=== PATIENT | female | born 1950 | race Caucasian/White ===

== ENCOUNTER 2017-10-13 01:38 | Observation (INO) | payer MEDICARE, OTHER ==
--- NOTE | 2017-10-13 02:10 | ER Document Report ---
ED General - General Chief Complaint: Other Stated Complaint: CHEST PAIN Time Seen by Provider: 10/13/17 01:58 Notes: Patient is a 67-year-old female that comes by EMS for chief complaint of an episode that happened about 1 hour prior to arrival where she felt flushing, she felt a a wave of a strange sensation and tingling down her body, she broke out into a sweat, and she felt like her right arm and her general upper body started twitching. She denies any pressure or pain, she denies shortness of breath or nausea, she states because it was strange she became concerned and she took nitroglycerin and 324 mg of aspirin and called EMS. She states symptoms resolved before EMS arrived. She denies any current symptoms. She reports history of [place] with 2 stents, type 2 diabetes, hypertension, hyperlipidemia, restless legs. She does not smoke. TRAVEL OUTSIDE OF THE [place] IN LAST 30 DAYS: No - Related Data Allergies/Adverse Reactions: No Known Allergies Allergy (Verified 02/25/16 22:31) Past Medical History - General Information source: Patient - Social History Smoking Status: Never Smoker Chew tobacco use (# tins/day): No Frequency of alcohol use: None Drug Abuse: None Lives with: Family Family History: Reviewed & Not Pertinent Patient has suicidal ideation: No Patient has homicidal ideation: No - Past Medical History Cardiac Medical History: Reports: Hx Heart Attack, Hx Hypercholesterolemia, Hx Hypertension - on meds Denies: Hx Coronary Artery Disease Pulmonary Medical History: Denies: Hx Asthma, Hx Bronchitis, Hx COPD, Hx Pneumonia Neurological Medical History: Denies: Hx Cerebrovascular Accident, Hx Seizures Endocrine Medical History: Reports: Hx Diabetes Mellitus Type 2 Renal/ Medical History: Denies: Hx Peritoneal Dialysis GI Medical History: Denies: Hx Hepatitis, Hx Hiatal Hernia, Hx Ulcer Musculoskeltal Medical History: Reports Hx Arthritis Psychiatric Medical History: Reports: Hx Depression Infectious Medical History: Denies: Hx Hepatitis Past Surgical History: Reports: Hx Cardiac Surgery - stent x2, Hx Orthopedic Surgery - left rotator cuff;back, Hx Tubal Ligation. Denies: Hx Mastectomy, Hx Open Heart Surgery, Hx Pacemaker - Immunizations Immunizations up to date: Yes Hx Diphtheria, Pertussis, Tetanus Vaccination: No Review of Systems - Review of Systems Constitutional: See HPI EENT: No symptoms reported Cardiovascular: See HPI Respiratory: No symptoms reported Gastrointestinal: No symptoms reported Genitourinary: No symptoms reported Female Genitourinary: No symptoms reported Musculoskeletal: No symptoms reported Skin: No symptoms reported Hematologic/Lymphatic: No symptoms reported Neurological/Psychological: No symptoms reported Physical Exam - Vital signs Vitals: Resp 19 10/13/17 01:49 - Notes Notes: GENERAL: Alert, interacts well. No acute distress. HEAD: Normocephalic, atraumatic. EYES: Pupils equal, round, and reactive to light. Extraocular movements intact. ENT: Oral mucosa moist, tongue midline. NECK: Full range of motion. Supple. Trachea midline. LUNGS: Clear to auscultation bilaterally, no wheezes, rales, or rhonchi. No respiratory distress. HEART: Regular rate and rhythm. No murmur ABDOMEN: Soft, non-tender. Non-distended. Bowel sounds present in all 4 quadrants. EXTREMITIES: Moves all 4 extremities spontaneously. No edema, normal radial and dorsalis pedis pulses bilaterally. No cyanosis. BACK: no cervical, thoracic, lumbar midline tenderness. No saddle anesthesia, normal distal neurovascular exam. NEUROLOGICAL: Alert and oriented x3. Normal speech. [cranial nerves II through XII grossly intact]. PSYCH: Normal affect, normal mood. SKIN: Warm, dry, normal turgor. No rashes or lesions noted. Course - Re-evaluation Re-evalutation: EKG showing sinus rhythm, flattened T-waves and borderline Q waves inferiorly and anteriorly, however this is not significantly changed from prior. No acute findings. Chest x-ray unremarkable. Shows mild leukocytosis with no concerning shift, chemistry shows mild hypokalemia, mildly elevated BUN, borderline glucose. Magnesium checked unremarkable, potassium supplemented. Urine suggestive of infection, culture placed, given Keflex. Initial troponin is negative. Patient symptoms are slightly atypical, however based on her history troponin was cycled, this does show some slight elevation although is still negative. Patient has been asymptomatic during her stay, remains asymptomatic on reevaluation. Discussed with Dr. Wang, recommendation is for telemetry observation based on upward trend of troponin, patient history, patient HPI. Discussed with Dr. Dunn, patient will be admitted to telemetry observation, patient states satisfaction and agreement with plan. - Vital Signs Vital signs: Temp Pulse Resp BP Pulse Ox 97.8 F 16 129/78 H 97 10/13/17 02:01 10/13/17 04:50 10/13/17 04:50 10/13/17 04:50 - Laboratory Result Diagrams: 10/13/17 00:56 10/13/17 00:56 Laboratory results interpreted by me: 10/13/17 10/13/17 10/13/17 00:56 00:56 04:50 WBC 12.6 H RBC 5.45 H Absolute Lymphocytes 5.0 H Potassium 3.5 L BUN 21 H Glucose 74 L Ur Leukocyte Esterase MODERATE H Discharge - Discharge Clinical Impression: Diaphoresis Chest pain Qualifiers: Chest pain type: unspecified Qualified Code(s): R07.9 - Chest pain, unspecified Condition: Stable Disposition: ADMITTED OBSERVATION Admitting Provider: Hospitalist Unit Admitted: Telemetry
[2017-10-13 02:19] LABS: ABSOLUTE BASOPHILS # (AUTO) 0.1 10^3/uL (0.0-0.2); ABSOLUTE EOSINOPHILS # (AUTO) 0.3 10^3/uL (0.0-0.6); ABSOLUTE MONOCYTES (AUTO) 0.9 10^3/uL (0.1-1.4); ABSOLUTE NEUT (AUTO) 6.3 10^3/uL (1.7-8.2); BASOPHILS % (AUTO) 0.7 % (0-2); EOSINOPHILS % (AUTO) 2.2 % (0-6); HEMATOCRIT 45.7 % (36.0-47.0); HEMOGLOBIN 15.3 g/dL (12.0-15.5); LYMPHOCYTES % (AUTO) 39.5 % (13-45); MEAN CORPUSCULAR HGB CONC 33.4 g/dL (32.0-36.0); MEAN CORPUSCULAR VOLUME 84 fl (80-97); MONOCYTES % (AUTO) 7.5 % (3-13); PLATELET COUNT 291 10^3/uL (150-450); RED BLOOD COUNT 5.45 10^6/uL (3.72-5.28); RED CELL DISTRIBUTION WIDTH 13.8 % (11.5-14.0); SEGMENTED NEUTROPHILS % (AUTO) 50.1 % (42-78); TOTAL CELLS COUNTED % (AUTO) 100 %; WHITE BLOOD COUNT 12.6 10^3/uL (4.0-10.5)
[2017-10-13 02:26] LABS: ALANINE AMINOTRANSFERASE 17 U/L (9-52); ALKALINE PHOSPHATASE 106 U/L (38-126); ANION GAP 14 (5-19); ASPARTATE AMINO TRANSFERASE 15 U/L (14-36); BILIRUBIN,DIRECT 0.2 mg/dL (0.0-0.4); BILIRUBIN,TOTAL 0.2 mg/dL (0.2-1.3); BLOOD UREA NITROGEN 21 mg/dL (7-20); CALCIUM 9.7 mg/dL (8.4-10.2); CARBON DIOXIDE 26 mmol/L (22-30); CHLORIDE 105 mmol/L (98-107); CREATINE KINASE 34 U/L (30-135); GLUCOSE 74 mg/dL (75-110); POTASSIUM 3.5 mmol/L (3.6-5.0); TOTAL PROTEIN 7.3 g/dL (6.3-8.2)
--- NOTE | 2017-10-13 02:40 | RADIOLOGY REPORT (SQ) ---
EXAM DESCRIPTION: XR CHEST 1 VIEW CLINICAL HISTORY: 67 years Female, weakness COMPARISON: 9.24.16. NUMBER OF VIEWS/TECHNIQUE: 1/AP FINDINGS: Adequate lung volume, clear parenchyma, normal cardiac silhouette, and intact bony thorax. IMPRESSION: No acute cardiopulmonary findings.
[2017-10-13 02:44] LABS: CREATINE KINASE MB 0.43 ng/mL (<4.55)
[2017-10-13 02:47] LABS: TROPONIN I < 0.012 ng/mL
[2017-10-13] MEDS ORDERED: POTASSIUM CHLORIDE 10 MEQ TABLET.SA PO ONE (03:43)
[2017-10-13 05:01] LABS: APPEARANCE,URINE CLEAR; BILIRUBIN,URINE NEGATIVE (NEGATIVE); COLOR,URINE YELLOW; GLUCOSE, URINE NEGATIVE (NEGATIVE); KETONES,URINE NEGATIVE (NEGATIVE); LEUKOCYTE ESTERASE,URINE MODERATE (NEGATIVE); NITRITE,URINE NEGATIVE (NEGATIVE); PROTEIN,URINE NEGATIVE (NEGATIVE); UROBILINOGEN,URINE NEGATIVE mg/dL (<2.0)
[2017-10-13] MEDS ORDERED: CEPHALEXIN 500 MG CAPSULE PO ONE (05:47)
[2017-10-13] MEDS ORDERED: NITROGLYCERIN 0.4 MG/TAB 25 TAB/BOTTLE SL PRN (06:47)
[2017-10-13] MEDS ORDERED: GLUCAGON,HUMAN RECOMB 1 MG INJ IM PRN (06:47)
[2017-10-13] MEDS ORDERED: DEXTROSE 50%-WATER 25 GM/50 ML DISP.SYRIN IV PRN ×2 (06:47)
[2017-10-13] MEDS ORDERED: INSULIN LISPRO 100 UNIT/ML 3 ML VIAL SUBCUT PRN (06:47)
[2017-10-13] MEDS ORDERED: DEXTROSE 40% GEL 15 GM TUBE PO PRN ×2 (06:47)
[2017-10-13] MEDS ORDERED: DEXTROSE 5%-1/2 NORMAL SALINE 1,000 ML IV ONE (06:48)
--- NOTE | 2017-10-13 07:45 | EKG REPORT ---
SEVERITY:- ABNORMAL ECG - SINUS RHYTHM INFERIOR INFARCT, OLD CONSIDER ANTERIOR INFARCT BORDERLINE PROLONGED QT INTERVAL : Confirmed by: Jarrell Diamond MD 13-Oct-2017 07:44:40
[2017-10-13] MEDS ORDERED: ATORVASTATIN CALCIUM 40 MG TABLET PO ONE (08:00)
[2017-10-13 08:12] LABS: CREATINE KINASE MB 0.87 ng/mL (<4.55); TROPONIN I 0.031 ng/mL
[2017-10-13] MEDS ORDERED: INSULIN DETEMIR 100 UNIT/ML 3 ML PEN SUBCUT SCH ×2 (10:00→17:30)
[2017-10-13] MEDS: DOCUSATE SODIUM 100 MG CAPSULE PO SCH ×2 (10:55→17:34)
[2017-10-13] MEDS: GABAPENTIN 300 MG CAPSULE PO SCH ×2 (14:38→22:25)
[2017-10-13 14:55] LABS: CREATINE KINASE MB 0.94 ng/mL (<4.55); TROPONIN I 0.013 ng/mL
--- NOTE | 2017-10-13 17:26 | PDOC PROGRESS REPORT ---
Subjective Progress Note for:: 10/13/17 Subjective:: The patient is a 67-year-old female with a past medical history of SC with 2 stents, type 2 diabetes mellitus requiring insulin, hypertension, hyperlipidemia , and restless legs who was admitted on 10/13/17 for atypical chest pain. The patient is seen on morning rounds. She is seen resting in bed comfortably on room air. She is found to be lying completely supine does not appear to have any difficulty with orthopnea; speaking in full sentences. The patient reports that she had atypical chest pain described as chest discomfort with palpitations associated with a tingling sensation over her body with heaviness to her right arm and diaphoresis. Onset was while at rest and resolved following self administration of a sublingual nitro tab. She has had no further symptoms since her arrival. At present, she denies headache, dizziness, chest pain, palpitations, dyspnea, orthopnea, abdominal pain, nausea vomiting and diarrhea. She has no new questions or concerns. Reason For Visit: CP CAD DM HYPOGLYCEMIA Physical Exam Vital Signs: Temp Pulse Resp BP Pulse Ox 98.2 F 69 18 142/74 H 96 10/13/17 16:12 10/13/17 16:12 10/13/17 16:12 10/13/17 16:12 10/13/17 16:12 Intake & Output 10/12/17 10/13/17 10/14/17 06:59 06:59 06:59 Weight 97 kg General appearance: PRESENT: no acute distress, obese, well-developed, well- nourished Head exam: PRESENT: atraumatic, normocephalic Eye exam: PRESENT: conjunctiva pink, EOMI, PERRLA. ABSENT: scleral icterus Ear exam: PRESENT: normal external ear exam Mouth exam: PRESENT: moist, tongue midline Neck exam: ABSENT: carotid bruit, JVD, lymphadenopathy, thyromegaly Respiratory exam: PRESENT: clear to auscultation fredy, symmetrical, unlabored. ABSENT: rales, rhonchi, wheezes Cardiovascular exam: PRESENT: RRR, +S1, +S2. ABSENT: diastolic murmur, rubs, systolic murmur Pulses: PRESENT: normal dorsalis pedis pul Vascular exam: PRESENT: normal capillary refill GI/Abdominal exam: PRESENT: normal bowel sounds, soft. ABSENT: distended, guarding, mass, organolmegaly, rebound, tenderness Rectal exam: PRESENT: deferred Extremities exam: PRESENT: full ROM. ABSENT: calf tenderness, clubbing, pedal edema Neurological exam: PRESENT: alert, awake, oriented to person, oriented to place , oriented to time, oriented to situation, CN II-XII grossly intact. ABSENT: motor sensory deficit Psychiatric exam: PRESENT: appropriate affect, normal mood, unusual affect. ABSENT: homicidal ideation, suicidal ideation Skin exam: PRESENT: dry, intact, warm. ABSENT: cyanosis, rash Results Laboratory Results: 10/13/17 10/13/17 07:36 13:47 CK-MB (CK-2) 0.87 0.94 Troponin I 0.031 0.013 Impressions: Chest X-Ray 10/13/17 02:07 IMPRESSION: No acute cardiopulmonary findings. Assessment & Plan - Diagnosis (1) Atypical chest pain Is this a current diagnosis for this admission?: Yes Plan: Although the patient's discomfort is atypical for chest pain and likely related to her relative hypoglycemia, the patient does have significant risk factors of a previous SC, obesity, hypertension, hyperlipidemia, and diabetes mellitus and so will evaluate further. Ms. Adame Chest x-ray is negative for acute processes. EKG demonstrated normal sinus rhythm with inferior old infarct, and borderline prolonged QT interval. There is no evidence of ST elevation or depression. Initial troponin was negative. The patient is admitted to the medical floor on continuous cardiac telemetry. Serial troponins were trended. We will obtain echocardiogram and nuclear stress testing. We will evaluate A1c and lipid panel for risk stratification with a.m. labs. Sublingual nitroglycerin is available as needed for chest pain. (2) Diabetes mellitus Qualifiers: Diabetes mellitus type: type 2 Diabetes mellitus termite treater insulin use: with fpc use Diabetes mellitus complication status: with unspecified complications Qualified Code(s): E11.8 - Type 2 diabetes mellitus with unspecified complications; Z79.4 - oysterman (current) use of insulin; Z79.4 - oysterman (current) use of insulin; Z79.4 - retirement (current) use of insulin; Z79.4 - retirement (current) use of insulin Is this a current diagnosis for this admission?: Yes Plan: Hemoglobin A1c is 9.0% We will hold the patient's metformin while inpatient. She is placed on a consistent carb diet with Accu-Cheks before meals and at bedtime. Humalog for sliding scale coverage. Her home dose Levemir of 65 units is reduced; will provide Lantus 20 units BID We will ask the certified diabetes educator to meet with patient. (3) Hypertension Is this a current diagnosis for this admission?: Yes Plan: We will continue the patient's home dose lisinopril and metoprolol. (4) Obesity Qualifiers: Body mass index: BMI 36.0-36.9 Is this a current diagnosis for this admission?: Yes Plan: The patient is placed on a consistent carb and cardiac diet. We will ask the registered dietitian and certified diabetes educator to meet with the patient. Dietary discretion is advised. - Time Time Spent with patient: 25-34 minutes Medications reviewed and adjusted accordingly: Yes Anticipated discharge: Home Within: within 24 hours
--- NOTE | 2017-10-13 18:53 | XCELERA REPORT ---
[address] [address] Transthoracic Echocardiogram Report Name: FUAD MASTERS Age: 67 yrs Gender: Female : 1950 Patient Status: Inpatient Patient Location: [place] [address]^A Study Date: 10/13/2017 09:24 AM Height: 64 in Weight: 210 lb BSA: 2.0 m2 Procedure: A complete two-dimensional transthoracic echocardiogram was performed (2D, M-mode, spectral and color flow Doppler). The study was technically adequate with some images being suboptimal in quality. Reason For Study: Chest pain (obs patient) Ordering Physician: SARAN LOPEZC Performed By: Linda Randolph Interpretation Summary The left ventricular ejection fraction is normal. Doppler measurements suggest pseudonormalized left ventricular relaxation, which is associated with grade II/IV or mild to moderate diastolic dysfunction The left ventricle is grossly normal size. There is borderline concentric left ventricular hypertrophy. Wall motion cannot be accurately commented on, but no definite regional wall motion abnormalities noted. The right ventricle is mildly dilated. The right ventricular systolic function is normal. The right atrium is normal in size The left atrial size is normal. There is no mitral valve stenosis. There is a trace amount of mitral regurgitation There is no aortic valve stenosis No aortic regurgitation is present. There is no tricuspid stenosis. No tricuspid regurgitation. The aortic root is not well visualized but is probably normal size. The inferior vena cava appeared normal and decreased > 50% with respiration (RAP 5-10 mmHg) There is no pericardial effusion. MMode/2D Measurements & Calculations RVDd: 3.0 cm LVIDd: 4.4 cm FS: 40.2 % Ao root diam: 3.1 cm IVSd: 1.1 cm LVIDs: 2.6 cm EDV(Teich): 86.7 ml LVPWd: 1.1 cm ESV(Teich): 25.1 ml Ao root area: 7.4 cm2 EF(Teich): 71.1 % LA dimension: 3.6 cm LVOT diam: 2.0 cm LVOT area: 3.2 cm2 Doppler Measurements & Calculations MV E max deneen: MV P1/2t max deneen: Ao V2 max: LV V1 max P.8 cm/sec 64.1 cm/sec 154.2 cm/sec 3.2 mmHg MV A max deneen: MV P1/2t: 74.0 msec Ao max PG: LV V1 max: 79.9 cm/sec MVA(P1/2t): 3.0 cm2 9.5 mmHg 88.8 cm/sec MV E/A: 0.80 MV dec slope: ANN(V,D): 1.8 cm2 253.7 cm/sec2 PA V2 max: 87.9 cm/sec PA max P.1 mmHg Left Ventricle The left ventricle is grossly normal size. There is borderline concentric left ventricular hypertrophy. The left ventricular ejection fraction is normal. Doppler measurements suggest pseudonormalized left ventricular relaxation, which is associated with grade II/IV or mild to moderate diastolic dysfunction. Wall motion cannot be accurately commented on, but no definite regional wall motion abnormalities noted. Right Ventricle The right ventricle is mildly dilated. There is normal right ventricular wall thickness. The right ventricular systolic function is normal. Atria The right atrium is normal in size. The left atrial size is normal. A patent foramen ovale is suspected. Mitral Valve The mitral valve is grossly normal. There is no mitral valve stenosis. There is a trace amount of mitral regurgitation. Aortic Valve The aortic valve is grossly normal. There is no aortic valve stenosis. No aortic regurgitation is present. Tricuspid Valve The tricuspid valve is not well visualized, but is grossly normal. There is no tricuspid stenosis. No tricuspid regurgitation. Pulmonic Valve The pulmonic valve is not well visualized. Great Vessels The aortic root is not well visualized but is probably normal size. The inferior vena cava appeared normal and decreased > 50% with respiration (RAP 5-10 mmHg). Effusions There is no pericardial effusion. : ESTHER LOPEZ > Lorena Rocha
[2017-10-13 19:40] LABS: CREATINE KINASE MB 0.88 ng/mL (<4.55)
[2017-10-13 19:41] LABS: TROPONIN I < 0.012 ng/mL
[2017-10-13] MEDS ORDERED: ATORVASTATIN CALCIUM 40 MG TABLET PO SCH (22:00)
[2017-10-13] MEDS: INSULIN DETEMIR 100 UNIT/ML 3 ML PEN SUBCUT SCH (22:24)
[2017-10-14] MEDS: GABAPENTIN 300 MG CAPSULE PO SCH ×2 (05:40→13:42)
[2017-10-14 06:22] LABS: ABSOLUTE BASOPHILS # (AUTO) 0.1 10^3/uL (0.0-0.2); ABSOLUTE EOSINOPHILS # (AUTO) 0.2 10^3/uL (0.0-0.6); ABSOLUTE LYMPHOCYTES (AUTO) 3.1 10^3/uL (0.5-4.7); ABSOLUTE MONOCYTES (AUTO) 0.5 10^3/uL (0.1-1.4); ABSOLUTE NEUT (AUTO) 4.3 10^3/uL (1.7-8.2); BASOPHILS % (AUTO) 0.9 % (0-2); EOSINOPHILS % (AUTO) 2.6 % (0-6); HEMATOCRIT 41.9 % (36.0-47.0); LYMPHOCYTES % (AUTO) 38.1 % (13-45); MEAN CORPUSCULAR HEMOGLOBIN 28.1 pg (27.0-33.4); MEAN CORPUSCULAR HGB CONC 33.5 g/dL (32.0-36.0); MEAN CORPUSCULAR VOLUME 84 fl (80-97); MONOCYTES % (AUTO) 6.7 % (3-13); PLATELET COUNT 209 10^3/uL (150-450); RED CELL DISTRIBUTION WIDTH 14.1 % (11.5-14.0); SEGMENTED NEUTROPHILS % (AUTO) 51.7 % (42-78); TOTAL CELLS COUNTED % (AUTO) 100 %; WHITE BLOOD COUNT 8.2 10^3/uL (4.0-10.5)
[2017-10-14 06:51] LABS: ANION GAP 9 (5-19); BLOOD UREA NITROGEN 12 mg/dL (7-20); CALCIUM 9.2 mg/dL (8.4-10.2); CARBON DIOXIDE 26 mmol/L (22-30); CHLORIDE 107 mmol/L (98-107); CREATINE KINASE 30 U/L (30-135); GLUCOSE 138 mg/dL (75-110); POTASSIUM 4.1 mmol/L (3.6-5.0); TRIGLYCERIDES 182 mg/dL (<150)
[2017-10-14 07:02] LABS: DIRECT LDL 116 mg/dL (<100)
[2017-10-14 07:05] LABS: VLDL CHOLESTEROL 36.4 mg/dL (10-31)
[2017-10-14] MEDS ORDERED: METOPROLOL SUCCINATE 25 MG TAB.SR.24H PO SCH (10:00)
[2017-10-14] MEDS ORDERED: LISINOPRIL 10 MG TABLET PO SCH (10:00)
[2017-10-14] MEDS ORDERED: DULOXETINE HCL 30 MG CAPSULE.DR PO SCH (10:00)
[2017-10-14] MEDS ORDERED: ASPIRIN 81 MG TABLET, ENT COATED PO SCH (10:00)
[2017-10-14] MEDS ORDERED: REGADENOSON INJ 0.4 MG/5 ML DISP.SYRIN IV ONE (12:00)
[2017-10-14] MEDS: INSULIN DETEMIR 100 UNIT/ML 3 ML PEN SUBCUT SCH (12:32)
[2017-10-14] MEDS: DOCUSATE SODIUM 100 MG CAPSULE PO SCH ×2 (12:36→17:14)
[2017-10-14] MEDS ORDERED: ACETAMINOPHEN 325 MG TABLET PO PRN (13:20)
--- NOTE | 2017-10-14 14:28 | DRAGON STRESS TEST REPORT ---
INTRAVENOUS LEXISCAN CARDIOLITE STRESS TEST USING SINGLE PHOTON EMMISION COMPUTERIZED TOMOGRAPHIC. DATE OF PROCEDURE: October 14, 2017, INDICATION : Chest pain CARDIAC RISK FACTORS: Diabetes, hypertension, dyslipidemia RESTING EKG: Sinus rhythm, Q waves noted inferiorly with suggestion of prior inferior IN STRESS EKG: No significant ST segment changes noted with LexiScan bolus REASON FOR TERMINATION: Protocol. PROCEDURE REPORT: Baseline heart rate 75 beats per minute with blood pressure of 119/73. Patient had no significant complaints. Patient was bolused with Lexiscan 0.4 mg intravenously followed by saline bolus. Heart rate at 2 minutes post bolus 101 with a blood pressure of 158/88. 3 minutes post bolus heart rate 100 with blood pressure of 172/91. No significant EKG changes were noted. Patient had no significant complaints during the procedure or postprocedure. Patient injected with Aminophyllin 75 mg at 3 minutes or later after Lexiscan bolus. CONCLUSIONS: Normal EKG and hemodynamic response to IV LexiScan. NUCLEAR DATA: At rest the patient was given 10.29 millicuries of technetium 99 sestamibi injected intravenously. As per protocol rest gated SPECT images were obtained. On day of stress test, the patient was given intravenous LexiScan at a dose of 0.4 mg in 5 mL intravenously, followed by flush with normal saline. Subsequently the stress dose of 33.4 millicuries of technetium 99 sestamibi was injected intravenously. As per protocol stress gated images were obtained. NUCLEAR INTERPRETATION: Both raw and processed data were used for interpretation. Visual, qualitative, computer-generated quantitative data was used. There was good myocardial uptake of technetium compound. Motion artifact and soft tissue attenuations were noted. Increased visceral uptake was noted. There was significant visceral contamination noted which cause difficulty with interpretation of perfusion in the inferior wall. Borderline decreased uptake was noted in the basal and mid inferior wall in the stress images however there were no corresponding wall motion abnormalities noted, therefore felt to be related to differences in attenuation and subtraction artifact, No definitive areas of fixed perfusion defect or scars noted. EKG gated imaging showed LV EF at 69 %, rest and stress gated EF similar visually. T. I D. ratio was 0.95. Lung heart ratio noted to be within normal limits 0.39. No significant extracardiac and abnormal radiotracer activities were noted. RV free wall uptake was noted to be WNL. IMPRESSION: Also refer to comments under nuclear interpretation. Also test results needs to be interpreted in the context of pretest probability. 1. No definitive transient perfusion defect or ischemia noted but clinical correlation requested as inferior wall perfusion, cannot be accurately commented upon due to artifacts and attenuation. 2. There is no definitive scintigraphic evidence of myocardial infarction/scar. 3. EKG gated imaging shows left ventricular ejection fraction of approx. 69 %. 4. Clinical correlation requested as occasionally single vessel disease or balanced ischemia could be missed. In approximately 10% of the cases Lexiscan may not cause adequate vasodilatory stress. RECOMMENDATIONS: Aggressive risk factor modification and medical management. Further evaluation may be needed if continued symptoms or other high risk indicators are noted on clinical evaluation. Close cardiology follow-up is also recommended. Clinical correlation with echocardiogram derived ejection fraction. Inability to exercise by itself can lead to increased cardiovascular event risks. Consider cardiology consultation and or follow-up if clinically indicated. 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 [employer]
[2017-10-14 17:35] VITALS: BP 114/62
--- NOTE | 2017-10-14 18:58 | PDOC CONSULTATION ---
Consultation Consult Date: 10/14/17 Attending physician:: USAMA MURO Consult reason:: Chest pain History of Present Illness Admission Date/PCP: 10/13/17 07:30 Patient complains of: Chest pain History of Present Illness: FUAD MASTERS is a 67 year old female that comes by EMS for chief complaint of an episode that happened about 1 hour prior to arrival where she felt flushing, she felt a a wave of a strange sensation and tingling down her body, she broke out into a sweat, and she felt like her right arm and her general upper body started twitching. She denies any pressure or pain, she denies shortness of breath or nausea, she states because it was strange she became concerned and she took nitroglycerin and 324 mg of aspirin and called EMS. She states symptoms resolved before EMS arrived. She denies any current symptoms. She reports history of [place] with 2 stents, type 2 diabetes, hypertension, hyperlipidemia, restless legs. She does not smoke. This history obtained by the ER physician was reviewed and confirmed. Patient did admit to having mild tightness in the center of her chest. Radiated to her right arm. There was some associated shortness of breath. Patient felt generally unwell. Patient therefore came to the emergency room. As noted above patient has history of prior myocardial infarction with stent placement. She also has history of diabetes, hypertension, dyslipidemia and obesity. Past Medical History Cardiac Medical History: Reports: Myocardial Infarction, Hyperlipidema, Hypertension - on meds Denies: Coronary Artery Disease Pulmonary Medical History: Denies: Asthma, Bronchitis, Chronic Obstructive Pulmonary Disease (COPD), Pneumonia Neurological Medical History: Denies: Seizures Endocrine Medical History: Reports: Diabetes Mellitus Type 2 GI Medical History: Reports: Gastroesophageal Reflux Disease Denies: Hepatitis, Hiatal Hernia Musculoskeltal Medical History: Reports: Arthritis Psychiatric Medical History: Reports: Depression Hematology: Denies: Anemia, Sickle Cell Disease Past Surgical History Past Surgical History: Reports: Cardiac Catheterization, Coronary Stent, Orthopedic Surgery - left rotator cuff;back, Tubal Ligation Denies: Amputation, Mastectomy, Pacemaker Social History Information Source: Patient Lives with: Family Smoking Status: Former Smoker - Advance Directive Resuscitation Status: Full Code Surrogate healthcare decision maker:: Surrogate decision-maker is Casey Saxena, phone #[phone] Family History Family History: Hypertension Parental Family History Reviewed: Yes Children Family History Reviewed: Yes Sibling(s) Family History Reviewed.: Yes Medication/Allergy Home Medications: Aspirin [Aspirin EC] 81 mg PO DAILY 10/13/17 Duloxetine HCl [Cymbalta] 30 mg PO DAILY 10/13/17 Insulin Aspart [Novolog Flexpen] 4 units SQ MEALS 10/13/17 Lisinopril [Prinivil 10 mg Tablet] 10 mg PO DAILY 10/13/17 Metformin HCl [Glucophage 500 mg Tablet] 500 mg PO BID 10/13/17 Metoprolol Succinate [Toprol Xl 25 mg Tab.sr] 25 mg PO DAILY 10/13/17 Nitroglycerin [Nitrostat 0.4 mg (1/150 Gr) Tabs 25/Bottle] 0.4 mg PO Q5MP PRN Acetaminophen [Tylenol 325 mg Tablet] 650 mg PO Q4HP PRN tablet 10/14/17 Atorvastatin Calcium [Lipitor 40 mg Tablet] 40 mg PO QHS #30 tablet 10/14/17 Gabapentin [Neurontin 300 mg Capsule] 300 mg PO Q8 capsule 10/14/17 Insulin Detemir [Levemir Insulin 100 units/mL] 22 unit SUBCUT Q12 #1 insuln.pen 10/14/17 Allergies/Adverse Reactions: No Known Allergies Allergy (Verified 02/25/16 22:31) Review of Systems Review of Systems: Please see history of present illness and past medical history as wall. Constitutional: No fever or chills reported. Head : No recent chronic headaches, recent head injury. Eyes: No recent eye pain, diplopia, redness, discharge, acute visual changes. Ears: No recent chronic ear pain, acute hearing loss, ear discharge. Oral cavity: No recent ulcerations, bleeding, oral cavity discomfort. Neck: No recent acute neck pain reported. Hematologic: No recent easy bruising or bleeding. Lymphatic: No recent lymph node enlargement reported. Cardiovascular system review: See history of present illness. Respiratory system review: No hemoptysis or blood clots in the lungs reported. Mild Shortness of breath on exertion Gastrointestinal system review: Negative for any recent acute hematemesis, melena. Genitourinary system review: No recent acute or chronic hematuria, flank pain, UTI etc. reported. Skin system review: Negative for any recent abnormal bruising, no rash, no pruritus reported. Neurologic: No prior history of strokes, mini strokes, seizure disorder. Psychologic: No history of major psychosis or major depression reported. History of minor depression reported Musculoskeletal: Minor aches and pains reported. No acute joint swelling reported. Endocrine: No recent polyuria, polydipsia, recent heat or cold intolerance. Physical Exam Vital Signs: Temp Pulse Resp BP Pulse Ox 98.7 F 74 16 114/62 94 10/14/17 17:34 10/14/17 17:34 10/14/17 17:34 10/14/17 17:34 10/14/17 17:34 Intake & Output 10/13/17 10/14/17 10/15/17 06:59 06:59 06:59 Intake Total 856 1072 Balance 856 1072 Weight 98.3 kg Exam: GENERAL: well-nourished and in no acute distress. Alert and oriented x3 HEAD: Atraumatic, normocephalic. EYES: Pupils equal round and reactive to light, extraocular movements intact, sclera anicteric, conjunctiva are normal. ENT: TMs normal, nares patent, oropharynx clear without exudates. Moist mucous membranes. No oral ulcerations or bleeding gums noted NECK: supple without lymphadenopathy. Trachea is central. No cervical or axillary lymphadenopathy noted. Carotids are 2+, JVD WNL LUNGS: Respiration seems nonlabored, no significant accessory muscle action noted. Breath sounds clear to auscultation bilaterally and equal noted. No wheezes rales or rhonchi noted. No significant dullness noted on percussion. CHEST: Palpation of the chest wall shows no significant chest wall tenderness. 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 ABDOMEN: Soft, no significant tenderness appreciated, normoactive bowel sounds. No guarding, no rebound. No rigidity noted . No masses appreciated. EXTREMITIES: Pedal pulses are 1-2+, no calf tenderness noted. No clubbing or cyanosis. negative pedal edema noted NEUROLOGICAL: Focused neurological exam showed no significant neurologic deficit. Normal speech, no focal weakness appreciated. PSYCH: Normal mood, normal affect. Judgment and insight within normal limits. SKIN: No significant ecchymosis, skin is noted to be warm. MUSCULOSKELETAL EXAM: No significant acute joint swelling noted. Results Laboratory Results: 10/14/17 05:40 10/14/17 05:40 10/14/17 10/14/17 05:40 05:40 WBC 8.2 RBC 5.00 Hgb 14.0 Hct 41.9 MCV 84 MCH 28.1 MCHC 33.5 RDW 14.1 H Plt Count 209 Seg Neutrophils % 51.7 Lymphocytes % 38.1 Monocytes % 6.7 Eosinophils % 2.6 Basophils % 0.9 Absolute Neutrophils 4.3 Absolute Lymphocytes 3.1 Absolute Monocytes 0.5 Absolute Eosinophils 0.2 Absolute Basophils 0.1 Sodium 142.0 Potassium 4.1 Chloride 107 Carbon Dioxide 26 Anion Gap 9 BUN 12 Creatinine 0.63 Est GFR ( Amer) > 60 Est GFR (Non-Af Amer) > 60 Glucose 138 H Calcium 9.2 Triglycerides 182 H Cholesterol 183.10 LDL Cholesterol Direct 116 H VLDL Cholesterol 36.4 H HDL Cholesterol 36 L 10/13/17 10/13/17 10/13/17 07:36 13:47 18:50 Creatine Kinase CK-MB (CK-2) 0.87 0.94 0.88 Troponin I 0.031 0.013 < 0.012 10/14/17 05:40 Creatine Kinase 30 CK-MB (CK-2) Troponin I EKG Comments: Sinus rhythm, Q waves noted in lead III and aVF suggestive of prior inferior AR. No acute ST-T wave changes are noted. Impressions: Chest X-Ray 10/13/17 02:07 IMPRESSION: No acute cardiopulmonary findings. Assessment & Plan - Diagnosis (1) Chest pain Qualifiers: Chest pain type: unspecified Qualified Code(s): R07.9 - Chest pain, unspecified Is this a current diagnosis for this admission?: Yes (2) Coronary artery disease Qualifiers: Coronary Disease-Associated Artery/Lesion type: [place] artery [place] vs. transplanted heart: [place] heart Associated angina: angina presence unspecified Qualified Code(s): I25.10 - Atherosclerotic heart disease of [place] coronary artery without angina pectoris Is this a current diagnosis for this admission?: Yes (3) Diabetes mellitus Qualifiers: Diabetes mellitus type: type 2 Diabetes mellitus long-term insulin use: with terminal gauger use Diabetes mellitus complication status: with unspecified complications Qualified Code(s): E11.8 - Type 2 diabetes mellitus with unspecified complications; Z79.4 - group home (current) use of insulin; Z79.4 - intermodal customer service (current) use of insulin; Z79.4 - intermodal customer service (current) use of insulin; Z79.4 - intermodal customer service (current) use of insulin Is this a current diagnosis for this admission?: Yes (4) Hypertension Qualifiers: Hypertension type: essential hypertension Qualified Code(s): I10 - Essential (primary) hypertension Is this a current diagnosis for this admission?: Yes (5) Obesity Qualifiers: Obesity type: unspecified obesity type Serious obesity comorbidity presence : unspecified whether serious comorbidity present Body mass index: unspecified BMI Is this a current diagnosis for this admission?: Yes (6) Dysthymia Is this a current diagnosis for this admission?: Yes (7) Hyperlipidemia Qualifiers: Hyperlipidemia type: unspecified Qualified Code(s): E78.5 - Hyperlipidemia , unspecified Is this a current diagnosis for this admission?: Yes - Notes Notes: Chest pain: Patient has known coronary artery disease. Patient has abnormal Q waves on EKG. There is at least a intermediate probability that chest pain from underlying cardiac ischemia. Patient therefore being scheduled for a nuclear stress test. This was in fact completed. Nuclear stress test was borderline abnormal. These results were discussed. Coronary artery disease: Patient has history of coronary stent placement. Recommend high potency statin therapy, beta-sheree, NITA inhibitor/angiotensin receptor sheree therapy. Patient will also benefit from antiplatelet therapy. Home medications reviewed and noted to be satisfactory. Diabetes: Currently well managed. Continue current management plans. Hypertension: Reasonably well controlled. Blood pressure goal in this patient is 135/85 or less. This was discussed with the patient. Currently blood pressure under reasonable control. Better medication for this patient are NITA inhibitor/ARB/beta sheree etc. discussed side effects of uncontrolled hypertension and also severe hypotension. Obesity: Patient has been encouraged in weight loss. In this regard have advised calorie restriction and increasing calorie expenditure by exercise. Dysthymia: Patient may have underlying anxiety depression. Patient to continue current regimen of Cymbalta. Hyperlipidemia: Continue high potency statin therapy. LDL goal is less than 70. These were discussed with the patient. Patient encouraged to follow-up with the consulting nurse. Currently patient has no consulting nurse therefore I did give her my card. - Time Time Spent: 30 to 50 Minutes - CODE STATUS was discussed, patient remains full code. Surrogate decision-maker patient's friend Casey Saxena. Multiple medical problems were addressed. More than 50% of the time spent coordinating care, discussing management plans with involved caregivers. Management plans discussed with involved personnels. Medical decision making was of moderate to high complexity, patient's has multiple comorbidities. Medications reviewed and adjusted accordingly: Yes
--- NOTE | 2017-10-15 17:04 | PDOC DISCHARGE SUMMARY ---
General - Admit/Disc Date/PCP Admission Date/Primary Care Provider: 10/13/17 07:30 Discharge Date: 10/15/17 - Discharge Diagnosis (1) Atypical chest pain Is this a current diagnosis for this admission?: Yes Summary: The patient was admitted for atypical chest pain secondary to multiple risk factors including previous [place] with stents, obesity, diabetes, hypertension, hyperlipidemia. EKG demonstrated normal sinus rhythm with inverted T waves and borderline Q waves; no ST segment elevation or depression noted. Chest x-ray was negative for acute cardiopulmonary processes. Serial troponins were negative 5. Echocardiogram reveals mild to moderate diastolic dysfunction with a preserved ejection fraction. Nuclear stress test did not demonstrate definitive transient perfusion defects or evidence of scar, ischemia/infarct. Of note, there was some artifact during the exam. Cardiology was consulted who reviewed her home medication regiment and found it to be appropriate. She was discharged on daily aspirin, atorvastatin 40 mg daily, and her home dose metoprolol and lisinopril. She was advised to follow-up with her primary care provider within 1 week. She was also recommended to follow-up with cardiology within 4-6 weeks, or sooner for continued symptoms. Report to the emergency department for acute chest pain. At time of discharge, the patient is in stable condition, tolerating a regular diet, pain-free, and maintaining oxygen saturations on room air. (2) Diabetes mellitus Is this a current diagnosis for this admission?: Yes Summary: The patient presented to the emergency department with a blood glucose of 70 and symptoms suggestive of relative hypoglycemia to include vague sense of unwell, tingling, diaphoresis, and nausea. Hemoglobin A1c is found to be 9.0%. The patient's home dose Lantus at 65 units nightly was adjusted to 20 units twice daily. While inpatient her metformin and standard mealtime Humalog dosing was held; she was placed on Humalog sliding scale. This regimen provided moderate control with blood glucose ranging from 148-287. At discharge, the patient is instructed to continue Lantus 22 units twice daily and to resume her home dose metformin and mealtime Humalog. She was instructed to check her blood glucose 3 times daily and to keep a log. She was advised of the importance of taking her blood glucose log with her to a follow-up appointment with her primary care provider so that further Lantus adjustments could be made. She was further instructed that if her blood sugar was >70 at that time to eat a small snack with protein and to administer her evening Lantus. (3) Hypertension Is this a current diagnosis for this admission?: Yes Summary: Adequately controlled with her home antihypertensive regimen. (4) Obesity Is this a current diagnosis for this admission?: Yes - Additional Information Resuscitation Status: Full Code Discharge Diet: Cardiac, Diabetic Discharge Activity: Activity As Tolerated, Balance Activity w/Rest Prescriptions: Atorvastatin Calcium [Lipitor 40 mg Tablet] 40 mg PO QHS #30 tablet Insulin Detemir [Levemir Insulin 100 units/mL] 22 unit SUBCUT Q12 #1 insuln.pen Home Medications: Aspirin [Aspirin EC] 81 mg PO DAILY 10/13/17 Duloxetine HCl [Cymbalta] 30 mg PO DAILY 10/13/17 Insulin Aspart [Novolog Flexpen] 4 units SQ MEALS 10/13/17 Lisinopril [Prinivil 10 mg Tablet] 10 mg PO DAILY 10/13/17 Metformin HCl [Glucophage 500 mg Tablet] 500 mg PO BID 10/13/17 Metoprolol Succinate [Toprol Xl 25 mg Tab.sr] 25 mg PO DAILY 10/13/17 Nitroglycerin [Nitrostat 0.4 mg (1/150 Gr) Tabs 25/Bottle] 0.4 mg PO Q5MP PRN Acetaminophen [Tylenol 325 mg Tablet] 650 mg PO Q4HP PRN tablet 10/14/17 Atorvastatin Calcium [Lipitor 40 mg Tablet] 40 mg PO QHS #30 tablet 10/14/17 Gabapentin [Neurontin 300 mg Capsule] 300 mg PO Q8 capsule 10/14/17 Insulin Detemir [Levemir Insulin 100 units/mL] 22 unit SUBCUT Q12 #1 insuln.pen 10/14/17 History of Present Illness History of Present Illness: FUAD MASTERS is a 67 year old female with a past medical history of [place] with stents, type 2 diabetes mellitus requiring insulin, hypertension, hyperlipidemia , and restless legs who presented to the emergency department on 10/13/17 for vague symptoms described as flushing followed by a wave of a strange sensation including tingling throughout her whole body. She broke out into a cold sweat and felt arm and upper body twitching. She denies pressure, pain, shortness of breath, and nausea. She does state that her symptoms resolved after she took 324 mg of aspirin and sublingual nitroglycerin. When asked if she felt chest pressure, discomfort, or pain she states, "I do not think so, but maybe." Evaluation in the emergency room reveals an EKG with sinus rhythm and flattened T waves with borderline Q waves which is unchanged from prior, unremarkable chest x-ray, mild leukocytosis, mild hypokalemia, and mildly elevated but indeterminate troponin. She was referred to the hospitalist service for observational admission for workup of atypical chest pain. Physical Exam Vital Signs: Temp Pulse Resp BP Pulse Ox 98.7 F 74 16 114/62 94 10/14/17 17:34 10/14/17 17:34 10/14/17 17:34 10/14/17 17:34 10/14/17 17:34 Intake & Output 10/14/17 10/15/17 10/16/17 06:59 06:59 06:59 Intake Total 856 1072 Balance 856 1072 Weight 98.3 kg General appearance: PRESENT: no acute distress, obese, well-developed, well- nourished Head exam: PRESENT: atraumatic, normocephalic Eye exam: PRESENT: conjunctiva pink, EOMI, PERRLA. ABSENT: scleral icterus Ear exam: PRESENT: normal external ear exam Mouth exam: PRESENT: moist, tongue midline Neck exam: ABSENT: carotid bruit, JVD, lymphadenopathy, thyromegaly Respiratory exam: PRESENT: clear to auscultation fredy, symmetrical, unlabored. ABSENT: rales, rhonchi, wheezes Cardiovascular exam: PRESENT: RRR, +S1, +S2. ABSENT: diastolic murmur, rubs, systolic murmur Pulses: PRESENT: normal dorsalis pedis pul Vascular exam: PRESENT: normal capillary refill GI/Abdominal exam: PRESENT: normal bowel sounds, soft. ABSENT: distended, guarding, mass, organolmegaly, rebound, tenderness Rectal exam: PRESENT: deferred Extremities exam: PRESENT: full ROM. ABSENT: calf tenderness, clubbing, pedal edema Neurological exam: PRESENT: alert, awake, oriented to person, oriented to place , oriented to time, oriented to situation, CN II-XII grossly intact. ABSENT: motor sensory deficit Psychiatric exam: PRESENT: flat affect, normal mood. ABSENT: homicidal ideation , suicidal ideation Skin exam: PRESENT: dry, intact, warm. ABSENT: cyanosis, rash Results Laboratory Results: 10/14/17 05:40 10/14/17 05:40 10/13/17 10/13/17 10/13/17 07:36 13:47 18:50 Creatine Kinase CK-MB (CK-2) 0.87 0.94 0.88 Troponin I 0.031 0.013 < 0.012 10/14/17 05:40 Creatine Kinase 30 CK-MB (CK-2) Troponin I Impressions: Chest X-Ray 10/13/17 02:07 IMPRESSION: No acute cardiopulmonary findings. Qualifiers - * PATIENT BEING DISCHARGED WITH ANY OF THE FOLLOWING DIAGNOSIS: No Plan Discharge Plan: Discharge to home with self-care. Follow-up with primary care provider within 1 week. Follow-up with cardiology within 4-6 weeks, or sooner if she continues to have chest discomfort. Report to the emergency room for acute chest pain.
== END 2017-10-14 18:17 | disposition home or self-care (01) ==
LOC: ER 01:38 → EH 07:30 → 4S 13:43
PROVIDERS: ADMIT Internal Medicine; ATTEND Internal Medicine
DX: R07.89 Other chest pain (principal); E11.8 Type 2 diabetes mellitus with unspecified complications; I10 Essential (primary) hypertension; E66.9 Obesity, unspecified; E78.5 Hyperlipidemia, unspecified; G25.81 Restless legs syndrome; R20.2 Paresthesia of skin; R23.2 Flushing; R25.3 Fasciculation; E87.6 Hypokalemia; D72.829 Elevated white blood cell count, unspecified; R79.89 Other specified abnormal findings of blood chemistry; R06.02 Shortness of breath; F34.1 Dysthymic disorder; R94.31 Abnormal electrocardiogram [ECG] [EKG]; I25.2 Old myocardial infarction; I25.10 Atherosclerotic heart disease of native coronary artery without angina pectoris; Z95.5 Presence of coronary angioplasty implant and graft; Z98.51 Tubal ligation status; Z87.891 Personal history of nicotine dependence; Z82.49 Family history of ischemic heart disease and other diseases of the circulatory system; Z79.82 Long term (current) use of aspirin; Z79.899 Other long term (current) drug therapy; Z79.4 Long term (current) use of insulin; Z68.36 Body mass index [BMI] 36.0-36.9, adult
CPT/HCPCS: 93005; 99285; 96360; 96361; 36415 ×2; 87086; 82553; 82962 ×2; 82550 ×2; 83735; 85025 ×2; 80048; 80053; 81001; 84484; 83036; 80061; 93306; 93017; 71045; 78452; 93010; G0378 ×3; A9500; J2785; A9270 ×11; J3490 ×2; Q9969; J1815

== ENCOUNTER 2018-10-21 12:02 | Emergency (ER) | payer MEDICARE, OTHER, MEDICAID ==
--- NOTE | 2018-10-21 12:21 | ER Document Report ---
ED Medical Screen (RME) - General Chief Complaint: Altered Mental Status Stated Complaint: POSSIBLE STROKE Time Seen by Provider: 10/21/18 12:10 Mode of Arrival: Wheelchair Information source: Patient, Relative Notes: Patient presents with her son who is worried that patient has had a possible stroke. Son states he was on the phone with her earlier this morning when she was at [facility] and she thought she was at the dental office. Patient's son states that she has episodes of confusion off and on for the past year and this is typical of episode she has had in the past. Patient complains of abdominal pain for the past 3 days with diarrhea and urinary frequency. Patient denies any fever or headache. Patient denies any chest pain back pain nausea or vomiting. Patient tearful in triage stating that she is just really tired and would like to sleep. hx: Diabetes, hypertension, CVA I have greeted and performed a rapid initial assessment of this patient. A comprehensive ED assessment and evaluation of the patient, analysis of test results and completion of the medical decision making process will be conducted by additional ED providers. TRAVEL OUTSIDE OF THE [place] IN LAST 30 DAYS: No - Related Data Allergies/Adverse Reactions: No Known Allergies Allergy (Verified 02/25/16 22:31) Past Medical History - Past Medical History Cardiac Medical History: Reports: Hx Heart Attack, Hx Hypercholesterolemia, Hx Hypertension - on meds Denies: Hx Coronary Artery Disease Pulmonary Medical History: Denies: Hx Asthma, Hx Bronchitis, Hx COPD, Hx Pneumonia Neurological Medical History: Denies: Hx Cerebrovascular Accident, Hx Seizures Endocrine Medical History: Reports: Hx Diabetes Mellitus Type 2 Renal/ Medical History: Denies: Hx Peritoneal Dialysis GI Medical History: Reports: Hx Gastroesophageal Reflux Disease. Denies: Hx Hepatitis, Hx Hiatal Hernia, Hx Ulcer Musculoskeltal Medical History: Reports Hx Arthritis Psychiatric Medical History: Reports: Hx Depression Infectious Medical History: Denies: Hx Hepatitis Past Surgical History: Reports: Hx Cardiac Catheterization, Hx Cardiac Surgery - stent x2, Hx Coronary Stent, Hx Orthopedic Surgery - left rotator cuff;back, Hx Tubal Ligation. Denies: Hx Mastectomy, Hx Open Heart Surgery, Hx Pacemaker - Immunizations Immunizations up to date: Yes Hx Diphtheria, Pertussis, Tetanus Vaccination: No History of Influenza Vaccine for 02/2017 - 07/2017 Season: Unknown Physical Exam - Vital signs Vitals: Temp Pulse Resp BP Pulse Ox 98.9 F 83 14 149/102 H 95 10/21/18 12:04 10/21/18 12:04 10/21/18 12:04 10/21/18 12:04 10/21/18 12:04 - General Notes: Generalized abdominal tenderness - Neurological [place] Coma Scale Eye Opening: Spontaneous [place] Coma Scale Verbal: Oriented [place] Coma Scale Motor: Obeys Commands [place] Coma Scale Total: 15 Speech: Normal. No: Dysarthria Course - Vital Signs Vital signs: Temp Pulse Resp BP Pulse Ox 98.9 F 83 14 149/102 H 95 10/21/18 12:04 10/21/18 12:04 10/21/18 12:04 10/21/18 12:04 10/21/18 12:04
--- NOTE | 2018-10-21 12:48 | RADIOLOGY REPORT (SQ) ---
EXAM DESCRIPTION: CHEST SINGLE VIEW COMPLETED DATE/TIME: 10/21/2018 12:39 pm REASON FOR STUDY: episode of confusion COMPARISON: 10/13/2017 and earlier EXAM PARAMETERS: NUMBER OF VIEWS: One view. TECHNIQUE: Single frontal radiographic view of the chest acquired. RADIATION DOSE: NA LIMITATIONS: None. FINDINGS: LUNGS AND PLEURA: No opacities, masses or pneumothorax. No pleural effusion. MEDIASTINUM AND HILAR STRUCTURES: No masses. Contour normal. HEART AND VASCULAR STRUCTURES: Heart normal in size. Normal vasculature. BONES: No acute findings. HARDWARE: None in the chest. OTHER: No other significant finding. IMPRESSION: NO ACUTE RADIOGRAPHIC FINDING IN THE CHEST. TECHNICAL DOCUMENTATION: JOB ID: [id number] [employer]- All Rights Reserved Reading location - IP/workstation name: [email or web address]
--- NOTE | 2018-10-21 12:51 | RADIOLOGY REPORT (SQ) ---
EXAM DESCRIPTION: CT HEAD WITHOUT COMPLETED DATE/TIME: 10/21/2018 12:39 pm REASON FOR STUDY: episode of confusion COMPARISON: 03/02/2011 TECHNIQUE: Axial images acquired through the brain without intravenous contrast. Images reviewed wi th bone, brain and subdural windows. Additional sagittal and coronal reconstructions were generated. Images stored on PACS. All CT scanners at this facility use dose modulation, iterative reconstruction, and/or weight based d osing when appropriate to reduce radiation dose to as low as reasonably achievable (ALARA). [facility]: Dose Right [facility]: CareDose [facility]: Dose Right [facility]: Teradose 4D [facility]: [employer] RADIATION DOSE: CT Rad equipment meets quality standard of care and radiation dose reduction techniq ues were employed. CTDIvol: 53.2 mGy. DLP: 1070 mGy-cm. mGy. LIMITATIONS: None. FINDINGS: VENTRICLES: Normal size and contour. CEREBRUM: No masses. No hemorrhage. No midline shift. No evidence for acute infarction. Few scatte red areas of low density in the white matter most likely chronic small vessel ischemic changes. CEREBELLUM: No masses. No hemorrhage. No alteration of density. No evidence for acute infarction. EXTRAAXIAL SPACES: No fluid collections. No masses. ORBITS AND GLOBE: No intra- or extraconal masses. Normal contour of globe without masses. CALVARIUM: No fracture. Hyperostosis frontalis interna. PARANASAL SINUSES: No fluid or mucosal thickening. SOFT TISSUES: No mass or hematoma. OTHER: No other significant finding. IMPRESSION: MILD CHRONIC MICROVASCULAR ISCHEMIA. NO ACUTE IMAGING FINDINGS IN THE BRAIN. EVIDENCE OF ACUTE STROKE: NO. COMMENT: Quality ID # [id number]: Final reports with documentation of one or more dose reduction techniques (e.g., Automated exposure control, adjustment of the mA and/or kV according to patient size, use of iterative reconstruction technique) TECHNICAL DOCUMENTATION: JOB ID: [id number] [employer]- All Rights Reserved Reading location - IP/workstation name: [email or web address]
[2018-10-21 13:05] LABS: ABSOLUTE EOSINOPHILS # (AUTO) 0.1 10^3/uL (0.0-0.6); ABSOLUTE LYMPHOCYTES (AUTO) 0.5 10^3/uL (0.5-4.7); ABSOLUTE MONOCYTES (AUTO) 0.4 10^3/uL (0.1-1.4); ABSOLUTE NEUT (AUTO) 6.6 10^3/uL (1.7-8.2); BASOPHILS % (AUTO) 0.4 % (0-2); EOSINOPHILS % (AUTO) 0.7 % (0-6); HEMOGLOBIN 14.8 g/dL (12.0-15.5); LYMPHOCYTES % (AUTO) 6.7 % (13-45); MEAN CORPUSCULAR HEMOGLOBIN 27.6 pg (27.0-33.4); MEAN CORPUSCULAR HGB CONC 32.8 g/dL (32.0-36.0); MEAN CORPUSCULAR VOLUME 84 fl (80-97); PLATELET COUNT 212 10^3/uL (150-450); RED BLOOD COUNT 5.35 10^6/uL (3.72-5.28); RED CELL DISTRIBUTION WIDTH 13.5 % (11.5-14.0); SEGMENTED NEUTROPHILS % (AUTO) 87.2 % (42-78); TOTAL CELLS COUNTED % (AUTO) 100 %; WHITE BLOOD COUNT 7.6 10^3/uL (4.0-10.5)
[2018-10-21 13:09] LABS: INTERNATIONAL RATION (INR) 0.91; PROTHROMBIN TIME 12.7 SEC (11.4-15.4)
[2018-10-21 13:10] LABS: PARTIAL THROMBOPLASTIN TIME 28.9 SEC (23.5-35.8)
[2018-10-21 13:24] LABS: ALANINE AMINOTRANSFERASE 21 U/L (9-52); ALBUMIN 3.9 g/dL (3.5-5.0); ALKALINE PHOSPHATASE 112 U/L (38-126); ANION GAP 9 (5-19); ASPARTATE AMINO TRANSFERASE 17 U/L (14-36); BILIRUBIN,DIRECT 0.3 mg/dL (0.0-0.4); BILIRUBIN,TOTAL 0.5 mg/dL (0.2-1.3); BLOOD UREA NITROGEN 17 mg/dL (7-20); CALCIUM 9.2 mg/dL (8.4-10.2); CARBON DIOXIDE 28 mmol/L (22-30); CHLORIDE 103 mmol/L (98-107); CREATINE KINASE 41 U/L (30-135); GLUCOSE 264 mg/dL (75-110); POTASSIUM 4.4 mmol/L (3.6-5.0); SODIUM 140.2 mmol/L (137-145); TOTAL PROTEIN 7.4 g/dL (6.3-8.2)
--- NOTE | 2018-10-21 13:26 | ER Document Report ---
ED General - General Chief Complaint: Altered Mental Status Stated Complaint: ALTERED MENTAL STATUS Time Seen by Provider: 10/21/18 12:10 Mode of Arrival: Wheelchair Notes: Patient says she just does not feel good. She says she feels very tired and weak this morning. She is been having abdominal pains for about 3 days. Says her has been sick and she is been trying to keep up with him. He wanted to go to [facility] this morning and when they got there, the patient called her son and seemed to be confused. Patient denies any headache or loss of consciousness. Denies any chest pain. Denies any shortness of breath or difficulty breathing. Patient was tearful in triage and says that all she wants to do is go home and go to sleep. Has not had any fevers. Patient has a history of insulin-dependent diabetes, hypertension, high cholesterol, and had a heart attack, according to the son, about a year ago which was followed by 5 heart attacks 1 day and she was admitted here and then transferred to [place]. She has chronic problems with her memory and chronic intermittent aphasia. TRAVEL OUTSIDE OF THE [place] IN LAST 30 DAYS: No - Related Data Allergies/Adverse Reactions: No Known Allergies Allergy (Verified 02/25/16 22:31) Past Medical History - General Information source: Patient, Relative - Social History Smoking Status: Unknown if Ever Smoked Frequency of alcohol use: None Drug Abuse: None Family History: Reviewed & Not Pertinent, Hypertension Patient has suicidal ideation: No Patient has homicidal ideation: No - Past Medical History Cardiac Medical History: Reports: Hx Heart Attack, Hx Hypercholesterolemia, Hx Hypertension - on meds Neurological Medical History: Reports: Hx Cerebrovascular Accident Endocrine Medical History: Reports: Hx Diabetes Mellitus Type 1, Hx Diabetes Mellitus Type 2 GI Medical History: Reports: Hx Gastroesophageal Reflux Disease Musculoskeletal Medical History: Reports Hx Arthritis Psychiatric Medical History: Reports: Hx Depression Past Surgical History: Reports: Hx Cardiac Catheterization, Hx Cardiac Surgery - stent x2, Hx Coronary Stent, Hx Orthopedic Surgery - left rotator cuff;back, Hx Tubal Ligation - Immunizations Immunizations up to date: Yes Hx Diphtheria, Pertussis, Tetanus Vaccination: No Review of Systems - Review of Systems Notes: REVIEW OF SYSTEMS: CONSTITUTIONAL : Denies fever. EENT: Denies eye, ear, nose or mouth or throat pain or other symptoms. CARDIOVASCULAR: Denies chest pain. RESPIRATORY: Denies cough, chest congestion, or shortness of breath. GASTROINTESTINAL: Has had some mild abdominal pains since yesterday. No localized tenderness. Says she vomited a few times yesterday but none today. No diarrhea.. GENITOURINARY: Denies difficulty or painful urinating, urinary frequency, blood in urine. MUSCULOSKELETAL: Denies back or neck pain. Denies joint pain or swelling. SKIN: Denies rash or skin lesions. NEUROLOGICAL: Denies LOC or altered mental status. Does have some residual memory loss from her stroke. Also son says that she has some residual a aphasia from her previous stroke. Denies sensory loss or motor deficits. ALL OTHER SYSTEMS REVIEWED AND NEGATIVE. REVIEW OF SYSTEMS: Physical Exam - Vital signs Vitals: Temp Pulse Resp BP Pulse Ox 98.9 F 83 14 149/102 H 95 10/21/18 12:04 10/21/18 12:04 10/21/18 12:04 10/21/18 12:04 10/21/18 12:04 Interpretation: Hypertensive - Minor Notes: PHYSICAL EXAMINATION: GENERAL: Well-appearing, in no acute distress. Patient is able to answer questions although it seems she has to think about things before answering sometimes. Does not remember the name of her doctor. HEAD: Atraumatic, normocephalic. EYES: Pupils equal round and reactive to light, extraocular movements intact. ENT: oropharynx clear without exudates. Moist mucous membranes. NECK: Normal range of motion, supple. LUNGS: Breath sounds clear and equal bilaterally. HEART: Regular rate and rhythm without murmurs. ABDOMEN: Soft, nontender. No guarding or rebound. No masses. BACK: No tenderness throughout entire back. EXTREMITIES: Normal range of motion without pain. NEUROLOGICAL: Normal speech, normal gait. Patient can stand and walk and turn around without assistance, although she is a slight bit unsteady. Did not fall. Normal sensory, motor, and reflex exams. Awake, alert, and oriented x3. Cranial nerves normal. PSYCH: Normal mood, normal affect. SKIN: Warm, dry, no rashes. Course - Re-evaluation Re-evalutation: 10/21/18 19:11 All of the patient's lab work including a urinalysis are essentially normal. Chest x-ray was normal. CT scan of the head shows nothing acute and is basically normal, as well. I think the patient may be depressed. - Vital Signs Vital signs: Temp Pulse Resp BP Pulse Ox 100.1 F 88 19 163/92 H 94 10/21/18 15:47 10/21/18 13:00 10/21/18 15:43 10/21/18 15:43 10/21/18 15:43 - Laboratory Result Diagrams: 10/21/18 12:53 10/21/18 12:53 Laboratory results interpreted by me: 10/21/18 10/21/18 10/21/18 12:42 12:53 12:53 RBC 5.35 H Seg Neutrophils % 87.2 H Lymphocytes % 6.7 L Glucose 264 H POC Glucose 238 H Urine Glucose (UA) 10/21/18 13:29 RBC Seg Neutrophils % Lymphocytes % Glucose POC Glucose Urine Glucose (UA) 50 H - EKG Interpretation by Me EKG shows normal: Sinus rhythm Rate: Normal Rhythm: NSR Additional EKG results interpreted by me: 10/21/18 14:53 EKG shows normal sinus rhythm and no acute changes, no STEMI. Discharge - Discharge Clinical Impression: Weakness, TIA (transient ischemic attack) Condition: Stable Disposition: HOME, SELF-CARE Additional Instructions: Weakness We did not find a definite cause for your weakness. This may require further medical tests. Weakness can be caused by infection, physical exhaustion, rapid weight loss, dehydration, or medicine side effects. Diseases of the muscles, heart, nerves, and blood vessels can make you weak. Sometimes the problem is simply depression or lack of exercise. You should get plenty of rest. Unless the doctor tells you otherwise, it's usually best to add short periods of regular mild exercise. Eat a nutritious diet with multiple small, low-sugar meals. If symptoms continue, additional medical evaluation will be necessary. Be sure to follow up as instructed. If you become very dizzy, nauseated, or feel like you're going to faint, lie down right away. Wait until the symptoms have passed before you get up again. Stand up slowly. Call the doctor or return if you develop chest pain, abdominal pain, severe headache, irregular heartbeat or very fast pulse, confusion, vision problems, fever, muscular pain, or any other new symptom. Transient Ischemic Attack You have been diagnosed as possibly having a transient ischemic attack (TIA). This is caused when an artery to the brain has been temporarily blocked. It can result in visual changes, difficulty with speech, and weakness or numbness -- usually limited to one side of the body. TIA symptoms usually resolve within an hour, but a TIA is serious, as it may be a warning sign of an impending stroke. To prevent further episodes, you may be placed on medication to reduce the possibility that your platelets will aggregate and form blood clots in the arteries that supply the brain. Usually, this includes aspirin and sometimes other platelet inhibitors. Further evaluation is often necessary to make an exact diagnosis as to where these blood clots are originating, and if anything else needs to be done to correct the problem. Call the physician or go to the emergency room if episodes occur with increasing frequency. If symptoms occur that don't go away within a few minutes, call 911. NORMAL EXAM AND WORKUP: At this time, your examination and workup show no significant abnormality. No significant abnormal physical findings were noted. All laboratory, EKG, and imaging (x-ray, CT scans, ultrasound) studies that were ordered show no significant abnormality. Although your examination and all studies that were ordered showed no significant abnormal finding, there are no examinations and no studies that are 100% accurate. There is always the possibility that some abnormality could e xist and not be detected with physical examination or within the limits and capabilities of laboratory and other studies. You should return or follow up as you were instructed on your visit today for further evaluation if your symptoms do not resolve. Return if you develop any new or worsening symptoms. Primary care physician. FOLLOW-UP CARE: If you have been referred to a physician for follow-up care, call the physicians office for an appointment as you were instructed or within the next two days. If you experience worsening or a significant change in your symptoms, notify the physician immediately or return to the Emergency Department at any time for re-evaluation.
[2018-10-21 13:35] LABS: CREATINE KINASE MB 0.78 ng/mL (<4.55); TROPONIN I < 0.012 ng/mL
[2018-10-21 13:52] LABS: APPEARANCE,URINE CLEAR; BILIRUBIN,URINE NEGATIVE (NEGATIVE); COLOR,URINE YELLOW; GLUCOSE, URINE 50 mg/dL (NEGATIVE); KETONES,URINE NEGATIVE (NEGATIVE); LEUKOCYTE ESTERASE,URINE NEGATIVE (NEGATIVE); NITRITE,URINE NEGATIVE (NEGATIVE); PROTEIN,URINE NEGATIVE (NEGATIVE); URINE SPECIFIC GRAVITY 1.015; UROBILINOGEN,URINE NEGATIVE mg/dL (<2.0)
[2018-10-21] MEDS ORDERED: ACETAMINOPHEN 325 MG TABLET PO ONE (15:46)
[2018-10-21 15:48] VITALS: BP 163/92
--- NOTE | 2018-10-21 23:46 | EKG REPORT ---
SEVERITY:- DEFECTIVE ECG - RIGHT AND LEFT ARM LEADS REVERSED, PLEASE REPEAT ECG : Confirmed by: Jen Pretty MD 21-Oct-2018 23:46:13
== END 2018-10-21 15:59 | disposition home or self-care (01) ==
LOC: ER 12:02
DX: G45.9 Transient cerebral ischemic attack, unspecified (principal); R53.1 Weakness; R53.83 Other fatigue; E11.9 Type 2 diabetes mellitus without complications; I10 Essential (primary) hypertension; E78.00 Pure hypercholesterolemia, unspecified; I25.2 Old myocardial infarction; Z79.4 Long term (current) use of insulin; Z98.51 Tubal ligation status
CPT/HCPCS: 93005; 99285; 36415; 82553; 82962; 82550; 85025; 85610; 85730; 80053; 81001; 84484; 71045; 70450; 93010; A9270

== ENCOUNTER 2019-01-29 18:01 | Emergency (ER) | payer MEDICARE, OTHER, MEDICAID ==
--- NOTE | 2019-01-29 18:10 | ER Document Report ---
ED Medical Screen (RME) - General Chief Complaint: S/S of Possible Stroke Stated Complaint: STROKE LIKE SYMPTOMS Time Seen by Provider: 01/29/19 18:07 Mode of Arrival: Wheelchair Information source: Relative Notes: 68-year-old female here with her son. Son states that since 24 January she is unable to answer questions appropriate sometimes not speaking appropriately and confused. Patient is able to answer some question able to follow some commands but does not answer all questions appropriately I have greeted and performed a rapid initial assessment of this patient. A comprehensive ED assessment and evaluation of the patient, analysis of test results and completion of medical decision making process will be conducted by an additional ED providers. TRAVEL OUTSIDE OF THE [place] IN LAST 30 DAYS: No - Related Data Allergies/Adverse Reactions: No Known Allergies Allergy (Verified 01/29/19 18:02) Past Medical History - Past Medical History Cardiac Medical History: Reports: Hx Heart Attack, Hx Hypercholesterolemia, Hx Hypertension - on meds Denies: Hx Coronary Artery Disease Pulmonary Medical History: Denies: Hx Asthma, Hx Bronchitis, Hx COPD, Hx Pneumonia Neurological Medical History: Reports: Hx Cerebrovascular Accident. Denies: Hx Seizures Endocrine Medical History: Reports: Hx Diabetes Mellitus Type 1, Hx Diabetes Mellitus Type 2 Renal/ Medical History: Denies: Hx Peritoneal Dialysis GI Medical History: Reports: Hx Gastroesophageal Reflux Disease. Denies: Hx Hepatitis, Hx Hiatal Hernia, Hx Ulcer Musculoskeltal Medical History: Reports Hx Arthritis Psychiatric Medical History: Reports: Hx Depression Infectious Medical History: Denies: Hx Hepatitis Past Surgical History: Reports: Hx Cardiac Catheterization, Hx Cardiac Surgery - stent x2, Hx Coronary Stent, Hx Orthopedic Surgery - left rotator cuff;back, Hx Tubal Ligation. Denies: Hx Mastectomy, Hx Open Heart Surgery, Hx Pacemaker - Immunizations Immunizations up to date: Yes Hx Diphtheria, Pertussis, Tetanus Vaccination: No History of Influenza Vaccine for 02/2017 - 07/2017 Season: Unknown
--- NOTE | 2019-01-29 18:33 | RADIOLOGY REPORT (SQ) ---
EXAM DESCRIPTION: CT HEAD WITHOUT COMPLETED DATE/TIME: 01/29/2019 6:18 pm REASON FOR STUDY: Decreased memory unable to answer some questions COMPARISON: 10/21/2018 TECHNIQUE: Axial images acquired through the brain without intravenous contrast. Images reviewed wi th bone, brain and subdural windows. Additional sagittal and coronal reconstructions were generated. Images stored on PACS. All CT scanners at this facility use dose modulation, iterative reconstruction, and/or weight based d osing when appropriate to reduce radiation dose to as low as reasonably achievable (ALARA). [facility]: Dose Right [facility]: CareDose [facility]: Dose Right [facility]: Teradose 4D [facility]: [employer] RADIATION DOSE: CT Rad equipment meets quality standard of care and radiation dose reduction techniq ues were employed. CTDIvol: 53.2 mGy. DLP: 1044 mGy-cm. mGy. LIMITATIONS: None. FINDINGS: VENTRICLES: Normal size and contour. CEREBRUM: No masses. No hemorrhage. No midline shift. No evidence for acute infarction. Few scatte red areas of low density in the white matter most likely chronic small vessel ischemic changes. CEREBELLUM: No masses. No hemorrhage. No alteration of density. No evidence for acute infarction. EXTRAAXIAL SPACES: No fluid collections. No masses. ORBITS AND GLOBE: No intra- or extraconal masses. Normal contour of globe without masses. CALVARIUM: No fracture. PARANASAL SINUSES: No fluid or mucosal thickening. SOFT TISSUES: No mass or hematoma. OTHER: No other significant finding. IMPRESSION: MILD CHRONIC MICROVASCULAR ISCHEMIA. NO ACUTE IMAGING FINDINGS IN THE BRAIN. EVIDENCE OF ACUTE STROKE: NO. COMMENT: Quality ID # [id number]: Final reports with documentation of one or more dose reduction techniques (e.g., Automated exposure control, adjustment of the mA and/or kV according to patient size, use of iterative reconstruction technique) TECHNICAL DOCUMENTATION: JOB ID: [id number] [employer]- All Rights Reserved Reading location - IP/workstation name: [email or web address]
[2019-01-29 19:02] LABS: ABSOLUTE BASOPHILS # (AUTO) 0.1 10^3/uL (0.0-0.2); ABSOLUTE EOSINOPHILS # (AUTO) 0.1 10^3/uL (0.0-0.6); ABSOLUTE LYMPHOCYTES (AUTO) 2.5 10^3/uL (0.5-4.7); ABSOLUTE MONOCYTES (AUTO) 0.5 10^3/uL (0.1-1.4); ABSOLUTE NEUT (AUTO) 5.6 10^3/uL (1.7-8.2); BASOPHILS % (AUTO) 0.7 % (0-2); EOSINOPHILS % (AUTO) 1.5 % (0-6); HEMATOCRIT 46.9 % (36.0-47.0); HEMOGLOBIN 15.3 g/dL (12.0-15.5); LYMPHOCYTES % (AUTO) 28.8 % (13-45); MEAN CORPUSCULAR HEMOGLOBIN 26.9 pg (27.0-33.4); MEAN CORPUSCULAR HGB CONC 32.5 g/dL (32.0-36.0); MEAN CORPUSCULAR VOLUME 83 fl (80-97); MONOCYTES % (AUTO) 5.9 % (3-13); PLATELET COUNT 255 10^3/uL (150-450); RED BLOOD COUNT 5.67 10^6/uL (3.72-5.28); RED CELL DISTRIBUTION WIDTH 13.9 % (11.5-14.0); SEGMENTED NEUTROPHILS % (AUTO) 63.1 % (42-78); TOTAL CELLS COUNTED % (AUTO) 100 %; WHITE BLOOD COUNT 8.8 10^3/uL (4.0-10.5)
[2019-01-29 19:17] LABS: INTERNATIONAL RATION (INR) 0.97; PARTIAL THROMBOPLASTIN TIME 27.8 SEC (23.5-35.8); PROTHROMBIN TIME 12.9 SEC (11.4-15.4)
[2019-01-29 19:26] LABS: ALBUMIN 4.3 g/dL (3.5-5.0); ALKALINE PHOSPHATASE 123 U/L (38-126); ANION GAP 10 (5-19); ASPARTATE AMINO TRANSFERASE 15 U/L (14-36); BILIRUBIN,DIRECT 0.2 mg/dL (0.0-0.4); BILIRUBIN,TOTAL 0.6 mg/dL (0.2-1.3); BLOOD UREA NITROGEN 13 mg/dL (7-20); CALCIUM 9.8 mg/dL (8.4-10.2); CARBON DIOXIDE 28 mmol/L (22-30); CHLORIDE 98 mmol/L (98-107); CREATINE KINASE 47 U/L (30-135); GLUCOSE 282 mg/dL (75-110); POTASSIUM 5.1 mmol/L (3.6-5.0); TOTAL PROTEIN 7.5 g/dL (6.3-8.2)
[2019-01-29 22:57] LABS: APPEARANCE,URINE SLIGHTLY-CLOUDY; BILIRUBIN,URINE NEGATIVE (NEGATIVE); COLOR,URINE YELLOW; GLUCOSE, URINE >=500 mg/dL (NEGATIVE); KETONES,URINE TRACE mg/dL (NEGATIVE); LEUKOCYTE ESTERASE,URINE LARGE (NEGATIVE); NITRITE,URINE NEGATIVE (NEGATIVE); PROTEIN,URINE NEGATIVE (NEGATIVE); UROBILINOGEN,URINE NEGATIVE mg/dL (<2.0)
[2019-01-30] MEDS ORDERED: NORMAL SALINE 1000 ML 1,000 ML IV ONE
[2019-01-30] MEDS ORDERED: CEFTRIAXONE 1 GM/D5W RTU 1 GM/50 ML RTUPB IV ONE
--- NOTE | 2019-01-30 00:30 | ER Document Report ---
Entered by BERNARDINO MALDONADO SCRIBE 01/30/19 0000 Acting as scribe for:ZHENG DEGROOT MD ED General - General Chief Complaint: S/S of Possible Stroke Stated Complaint: STROKE LIKE SYMPTOMS Time Seen by Provider: 01/29/19 18:07 Primary Care Provider: CHIRAG AQUINO MD [Primary Care Provider] - 02/01/19 Mode of Arrival: Wheelchair Information source: Patient Notes: Patient is a 68 year old female that presents to the emergency department today with complaints of confusion. Son at bedside states that at baseline the patietn sleeps most of the day, never going outside, and rarely getting up to move around the house. Patient has intermittent bouts of aphasia and memory problems. Son states now the patient is much more confused, is unable to get out what she wants to say. Patient states these symptoms have been present since 01/24/19. Patient is not a TPA candidate. Her symptoms started several days ago. Review of records shows that the symptoms that were described are actually an intermittent chronic problem. Work-up today finds the patient has a urinary tract infection which is the probable cause of her neurological symptoms being a little worse than her baseline. This was discussed with the patient and her son, and they understand and are agreeable to treating her urinary tract infection on outpatient basis. TRAVEL OUTSIDE OF THE [place] IN LAST 30 DAYS: No - Related Data Allergies/Adverse Reactions: No Known Allergies Allergy (Verified 01/29/19 22:48) Past Medical History - General Information source: Relative - Social History Smoking Status: Former Smoker Cigarette use (# per day): No Frequency of alcohol use: Rare Drug Abuse: None Lives with: Family Family History: Reviewed & Not Pertinent, Hypertension Patient has suicidal ideation: No Patient has homicidal ideation: No - Past Medical History Cardiac Medical History: Reports: Hx Heart Attack, Hx Hypercholesterolemia, Hx Hypertension - on meds Neurological Medical History: Reports: Hx Cerebrovascular Accident Endocrine Medical History: Reports: Hx Diabetes Mellitus Type 1, Hx Diabetes Mellitus Type 2 GI Medical History: Reports: Hx Gastroesophageal Reflux Disease Musculoskeletal Medical History: Reports Hx Arthritis Psychiatric Medical History: Reports: Hx Depression Past Surgical History: Reports: Hx Cardiac Catheterization, Hx Cardiac Surgery - stent x2, Hx Coronary Stent, Hx Orthopedic Surgery - left rotator cuff;back, Hx Tubal Ligation - Immunizations Immunizations up to date: Yes Hx Diphtheria, Pertussis, Tetanus Vaccination: No Review of Systems - Review of Systems Constitutional: No symptoms reported EENT: No symptoms reported Cardiovascular: No symptoms reported Respiratory: No symptoms reported Gastrointestinal: No symptoms reported Genitourinary: No symptoms reported Female Genitourinary: No symptoms reported Musculoskeletal: No symptoms reported Skin: No symptoms reported Hematologic/Lymphatic: No symptoms reported Neurological/Psychological: See HPI, Confusion, Speech impairment -: Yes All other systems reviewed and negative Physical Exam - Vital signs Vitals: Temp Pulse Resp BP Pulse Ox 98.3 F 80 20 154/87 H 97 01/29/19 18:07 01/29/19 18:07 01/29/19 18:07 01/29/19 18:07 01/29/19 18:07 - Notes Notes: Physical Exam: General: Alert, appears to comprehend most conversation. HEENT: Normocephalic. Atraumatic. PERRL. Extraocular movements intact. Oropharynx clear. Neck: Supple. Non-tender. Respiratory: No respiratory distress. Clear and equal breath sounds bilaterally. Cardiovascular: Regular rate and rhythm. Abdominal: Obese. Non-tender. No distension. Normal Bowel Sounds. Back: No gross abnormalities. Extremities: Moves all four extremities. Upper extremities: Normal inspection. Normal ROM. Lower extremities: Normal inspection. No edema. Normal ROM. Neurological: Poor memory at baseline. Normal speech, not slurred. No focal neurological weakness. Psychological: Normal affect. Normal Mood. Skin: Warm. Dry. Normal color. Course - Vital Signs Vital signs: Temp Pulse Resp BP Pulse Ox 98.7 F 74 15 146/73 H 94 01/29/19 21:18 01/29/19 21:12 01/29/19 23:31 01/29/19 23:31 01/29/19 23:31 - Laboratory Result Diagrams: 01/29/19 18:15 01/29/19 18:15 Laboratory results interpreted by me: 01/29/19 01/29/19 01/29/19 18:15 18:15 18:15 RBC 5.67 H MCH 26.9 L Sodium 136.2 L Potassium 5.1 H Glucose 282 H Hemoglobin A1c % 9.7 H Urine Glucose (UA) Urine Ketones Ur Leukocyte Esterase 01/29/19 22:30 RBC MCH Sodium Potassium Glucose Hemoglobin A1c % Urine Glucose (UA) >=500 H Urine Ketones TRACE H Ur Leukocyte Esterase LARGE H Discharge - Discharge Clinical Impression: Confusion, hx of, without neuro findings, Acute on chronic alteration in mental status, Poorly controlled diabetes mellitus Urinary tract infection Qualifiers: Urinary tract infection type: site unspecified Hematuria presence: with hematuria Qualified Code(s): N39.0 - Urinary tract infection, site not specified Condition: Stable Disposition: HOME, SELF-CARE Additional Instructions: Urinary Tract Infection Your evaluation indicates that you have a urinary tract infection. This is due to germs growing in the bladder. This is a common problem. This infection usually responds quickly to antibiotics. Your antibiotic should be taken exactly as prescribed. Drink plenty of fluids -- three to four quarts a day. Occasionally, a bladder anesthetic will be prescribed to help stop the feeling of urgency until the antibiotic has a chance to clear the infection. This may cause your urine to be dark orange. Certain urine infections require a culture. If the doctor obtained a culture, the results will be back in two days. You should call to see if a change in treatment is needed. A repeat urinalysis after you finish treatment is often recommended. The physician will let you know if further testing is required. Call the doctor if you develop fever, chills, flank pain, inability to urinate, or blood in the urine. Your worsening neurological symptoms of confusion, difficulty expressing self, and less energy and getting up and about, are most likely due to the urinary tract infection. No evidence of acute or recent stroke was found. You should increase your fluid intake and drink plenty of water throughout the day in the evening. Take the antibiotics as prescribed. If the urine culture grows a bacteria that is resistant to the antibiotic you are prescribed, he will be contacted to change the prescription. Your blood sugars have not been well controlled now for several months. That also increases your risk of infections. Follow-up with your primary care provider in 2 to 3 days to recheck your urine and to discuss your poorly controlled diabetes. RETURN TO THE EMERGENCY ROOM IF ANY NEW OR WORSENING SYMPTOMS. Prescriptions: Cephalexin Monohydrate [Keflex 500 mg Capsule] 500 mg PO TID #21 capsule Referrals: CHIRAG AQUINO MD [Primary Care Provider] - 02/01/19 Scribe Attestation: 01/30/19 00:31 I personally performed the services described in the documentation, reviewed and edited the documentation which was dictated to the scribe in my presence, and it accurately records my words and actions. I personally performed the services described in the documentation, reviewed and edited the documentation which was dictated to the scribe in my presence, and it accurately records my words and actions.
[2019-01-30 02:12] VITALS: BP 125/77
== END 2019-01-30 02:12 | disposition home or self-care (01) ==
LOC: ER 18:01
DX: R41.0 Disorientation, unspecified (principal); N39.0 Urinary tract infection, site not specified; E11.9 Type 2 diabetes mellitus without complications; E78.00 Pure hypercholesterolemia, unspecified; I10 Essential (primary) hypertension; Z86.73 Personal history of transient ischemic attack (TIA), and cerebral infarction without residual deficits; I25.2 Old myocardial infarction; Z98.51 Tubal ligation status
CPT/HCPCS: 36415; 87086; 82553; 82550; 83690; 85025; 85610; 85730; 80053; 81001; 83036; 70450; J7030; J0696